=== PATIENT | male | born 1960 | race Caucasian/White ===

== ENCOUNTER 2022-05-06 08:50 | Inpatient (IN) | payer OTHER ==
[2022-05-06] MEDS ORDERED: Fentanyl 100 MCG/2 ML VIAL ONE ×2 (08:54→09:08)
[2022-05-06] MEDS ORDERED: Tranexamic Acid 1,000 MG/10 ML VIAL ONE (08:57)
[2022-05-06] MEDS ORDERED: CEFAZOLIN 1 GM VIAL ONE ×2 (08:59→09:00)
[2022-05-06] MEDS ORDERED: Boostrix 0.5 ML (Tdap) VIAL ONE (09:01)
[2022-05-06] MEDS ORDERED: Calcium Chloride 1 GM/10 ML Abboject SYRINGE ONE (09:02)
[2022-05-06] MEDS ORDERED: Lidocaine 1% PF 5 ML VIAL ONE (09:04)
[2022-05-06] MEDS ORDERED: Calcium Gluc 4.6 MEQ/10 ML (100 MG/ML) ONE (09:05)
[2022-05-06] MEDS ORDERED: Iopamidol-370 76% 500 ML 1 ML ONE (09:08)
[2022-05-06 09:10] LABS: Hemoglobin 14.3 g/dL (14.0-18.0); Mean Corpuscular HGB CONC 32.2 g/dL (32.0-36.0); Mean Corpuscular Hemoglobin 29.3 pg (27.0-31.0); Mean Corpuscular Volume 91.3 fL (78.0-98.0); Mean Platelet Volume 8.6 fL (7.4-10.4); Platelet Count 216 thou/uL (130-400); Red Blood Cell (RBC) Count 4.87 mill/uL (4.70-6.10); White Blood Cell (WBC) Count 28.8 thou/uL (4.8-10.8)
[2022-05-06 09:17] LABS: Actual Bicarbonate (HCO3a) 15.5 mEq/L (22-28); Analyzer IN Cardio ER; Base Excess (BEa) -10.9 mEq/L (-2.0 to +3.0); CO2 Tension 36.4 mmHg (35.0-45.0); Calcium, Ionized (arterial) 0.97 mmol/L (1.12-1.30); Carboxyhemoglobin (COHb) 0.4 gm% (0.0-3.0); Hemoglobin (Hb) 14.8 g/dL (14.0-18.0); O2 Tension (PaO2), arterial 137.4 mmHg (> 80.0); Potassium - ABG Lab 4.45 mmol/L (3.70-5.30); Puncture Site RRA; pH, Arterial 7.25 (7.35-7.45)
[2022-05-06 09:21] LABS: ALT (SGPT) 26 U/L (8-55); AST (SGOT) 25 U/L (5-34); Acetaminophen Less than 10.0 mcg/mL (10.0-30.0); Albumin 3.8 g/dL (3.5-5.0); Alcohol Less than 10 mg/dL (Less than 10); Alkaline Phosphatase 58 U/L (40-110); Anion Gap 20 mmol/L (10-20); BUN (Urea Nitrogen) 12 mg/dL (8.4-25.7); Bilirubin, Total 1.1 mg/dL (0.2-1.2); Calc. Creatinine Clearance 0 mL/min (70-130); Calcium 9.6 mg/dL (7.8-10.44); Carbon Dioxide 15 mmol/L (22-29); Chloride 98 mmol/L (98-107); Estimated GFR 46; Globulin 2.5 g/dL (2.4-3.5); Glucose 246 mg/dL (70-105); Potassium 3.6 mmol/L (3.5-5.1); Protein, Total 6.3 g/dL (6.0-8.3); Salicylate Less than 8.0 mg/dL (15.0-30.0); Sodium 129 mmol/L (136-145)
[2022-05-06 09:22] LABS: INR-International Normal Ratio 1.2; PTT 25.9 sec (22.9-36.1); Prothrombin Time 15.1 sec (12.0-14.7)
[2022-05-06 09:36] LABS: Bacteria/HPF None Seen HPF (None Seen); Bilirubin Negative (Negative); Blood, Urine 2+ (Negative); Clarity Clear (Clear); Glucose, Urine (Dipstick) Normal (Negative); Ketone, Urine Negative (Negative); Leukocyte Negative Leu/uL (Negative); Nitrite Negative (Negative); Protein, Urine (Dipstick) Negative (Neg-Trace); RBC/HPF 21-50 HPF (0-3); Specific Gravity, Urine 1.015 (1.002-1.036); Squamous Epithelial None Seen HPF (0-3); Urobilinogen Normal mg/dL (Less than 2); WBC/HPF 0-3 HPF (0-3)
[2022-05-06 09:41] LABS: Band 41 % (5-11); Lymphocytes 3 % (21-51); MDiff Complete? YES; Monocytes 4 % (0-10); Neutrophil 52 % (42-75); Platelet Morphology Comment Appears Adequate; Polychromasia SLIGHT = 2-3 cells (100X) (0-2/hpf); Reflex for Review?? NO
[2022-05-06 09:46] LABS: Amphetamine Not Detected (NotDetected); Barbiturates Screen Not Detected (NotDetected); Benzodiazepine Screen Not Detected (NotDetected); Cocaine Metabolite Screen Not Detected (NotDetected); Methadone Not Detected (NotDetected); Methamphetamine Not Detected (NotDetected); Opiate Screen Not Detected (NotDetected); Oxycodone Screen Not Detected (NotDetected); Phencyclidine (PCP) Not Detected (NotDetected); THC/Cannabinoid Screen Not Detected (NotDetected); Tricyclic Screen Not Detected (NotDetected)
[2022-05-06] MEDS ORDERED: HumaLOG 300 UNITS/3 ML VIAL SC PRN (09:47)
[2022-05-06] MEDS ORDERED: Dextrose 50% Abboject 50 ML SYRINGE SLOW IVP PRN (09:47)
[2022-05-06] MEDS ORDERED: Dextrose 5% in Water 1,000 ML IV PRN (09:47)
[2022-05-06] MEDS ORDERED: Ondansetron PF 4 MG/2 ML Vial IVP PRN (09:47)
[2022-05-06] MEDS ORDERED: traMADol HCl 50 MG TAB PO PRN ×2 (09:51→15:35)
[2022-05-06] MEDS ORDERED: Lactated Ringer's 1,000 ML IV SCH (10:00)
[2022-05-06 10:57] LABS: SARS-CoV-2 NAA Rapid Test Not Detected (NotDetected)
[2022-05-06 12:53] VITALS: BMI 34.0
[2022-05-06 13:05] LABS: Lactic Acid 3.9 mmol/L (0.5-2.2)
[2022-05-06] MEDS: traMADol HCl 50 MG TAB PO SCH ×3 (13:43→20:24)
[2022-05-06] MEDS: Acetaminophen 325 MG TAB PO SCH ×3 (13:43→20:23)
[2022-05-06] MEDS ORDERED: Prevnar 13-Val Conj/PF 0.5 ML SYRINGE IM ONE (14:00)
[2022-05-06] MEDS ORDERED: Morphine 2 MG/ML VIAL SLOW IVP PRN (15:36)
[2022-05-06] MEDS ORDERED: traMADol HCl 50 MG TAB PO SCH (15:45)
[2022-05-06] MEDS: Gabapentin 300 MG CAP PO SCH (20:23)
[2022-05-06] MEDS ORDERED: Famotidine 20 MG TAB PO SCH (21:00)
[2022-05-06] MEDS ORDERED: Acetaminophen 325 MG TAB PO SCH (21:29)
[2022-05-07] MEDS: Acetaminophen 500 MG TAB PO SCH ×5 (00:10→23:39)
[2022-05-07] MEDS: traMADol HCl 50 MG TAB PO SCH ×5 (00:10→23:39)
[2022-05-07 03:39] LABS: #Basophils 0.1 thou/uL (0.0-0.2); #Lymphocytes 1.6 thou/uL (1.20-3.40); #Monocytes 0.7 thou/uL (0.11-0.59); #Neutrophils 7.8 thou/uL (1.40-6.50); %Basophils 0.6 % (0.0-1.0); %Eosinophils 0.1 % (0.0-10.0); %Lymphocytes 15.6 % (21.0-51.0); %Neutrophils 76.8 % (42.0-75.0); Mean Corpuscular Hemoglobin 31.8 pg (27.0-31.0); Mean Corpuscular Volume 90.8 fL (78.0-98.0); Mean Platelet Volume 8.2 fL (7.4-10.4); Platelet Count 118 thou/uL (130-400); RBC Distribution Width 13.8 % (11.5-14.5); Red Blood Cell (RBC) Count 3.77 mill/uL (4.70-6.10); White Blood Cell (WBC) Count 10.2 thou/uL (4.8-10.8)
[2022-05-07 03:55] LABS: Anion Gap 13 mmol/L (10-20); BUN (Urea Nitrogen) 14 mg/dL (8.4-25.7); Calc. Creatinine Clearance 151 mL/min (70-130); Calcium 8.7 mg/dL (7.8-10.44); Carbon Dioxide 23 mmol/L (22-29); Chloride 97 mmol/L (98-107); Estimated GFR 102; Glucose 110 mg/dL (70-105); Magnesium 1.9 mg/dL (1.6-2.6); Phosphorus 3.6 mg/dL (2.3-4.7); Potassium 3.8 mmol/L (3.5-5.1); Sodium 129 mmol/L (136-145)
[2022-05-07] MEDS: Gabapentin 300 MG CAP PO SCH ×3 (08:23→19:56)
[2022-05-07] MEDS ORDERED: Lurasidone 20 MG TABLET PO SCH (09:00)
[2022-05-07] MEDS ORDERED: Potassium Phosphate 15 MMOL in Sodium Chloride 0.9% 250 ML 250 ML IVPB SCH (09:00)
[2022-05-07 09:58] LABS: #Lymphocytes 0.7 thou/uL (1.20-3.40); #Monocytes 0.3 thou/uL (0.11-0.59); #Neutrophils 8.5 thou/uL (1.40-6.50); %Basophils 0.5 % (0.0-1.0); %Eosinophils 0.2 % (0.0-10.0); %Lymphocytes 6.8 % (21.0-51.0); %Monocytes 3.3 % (0.0-10.0); %Neutrophils 89.2 % (42.0-75.0); Hemoglobin 12.3 g/dL (14.0-18.0); Mean Corpuscular Hemoglobin 30.1 pg (27.0-31.0); Mean Corpuscular Volume 91.3 fL (78.0-98.0); Mean Platelet Volume 8.3 fL (7.4-10.4); Platelet Count 125 thou/uL (130-400); RBC Distribution Width 13.8 % (11.5-14.5); Red Blood Cell (RBC) Count 4.08 mill/uL (4.70-6.10); White Blood Cell (WBC) Count 9.6 thou/uL (4.8-10.8)
[2022-05-07 15:47] LABS: #Basophils 0.1 thou/uL (0.0-0.2); #Eosinphils 0.1 thou/uL (0.0-0.7); #Monocytes 0.6 thou/uL (0.11-0.59); #Neutrophils 9.5 thou/uL (1.40-6.50); %Basophils 0.5 % (0.0-1.0); %Eosinophils 0.5 % (0.0-10.0); %Lymphocytes 8.6 % (21.0-51.0); %Monocytes 5.2 % (0.0-10.0); %Neutrophils 85.2 % (42.0-75.0); Hemoglobin 12.9 g/dL (14.0-18.0); Mean Corpuscular HGB CONC 33.2 g/dL (32.0-36.0); Mean Corpuscular Hemoglobin 30.5 pg (27.0-31.0); Mean Corpuscular Volume 91.9 fL (78.0-98.0); Mean Platelet Volume 8.5 fL (7.4-10.4); Platelet Count 126 thou/uL (130-400); RBC Distribution Width 13.6 % (11.5-14.5); Red Blood Cell (RBC) Count 4.22 mill/uL (4.70-6.10); White Blood Cell (WBC) Count 11.1 thou/uL (4.8-10.8)
[2022-05-07] MEDS: traZODone HCl 50 MG TAB PO SCH (19:57)
[2022-05-07] MEDS: Senokot S 8.6-50 MG TAB PO SCH (19:57)
[2022-05-07] MEDS: Lurasidone 20 MG TABLET PO SCH (21:52)
[2022-05-08 05:11] LABS: #Basophils 0.1 thou/uL (0.0-0.2); #Lymphocytes 0.5 thou/uL (1.20-3.40); #Monocytes 0.4 thou/uL (0.11-0.59); %Basophils 0.5 % (0.0-1.0); %Eosinophils 0.5 % (0.0-10.0); %Lymphocytes 4.6 % (21.0-51.0); %Monocytes 4.1 % (0.0-10.0); %Neutrophils 90.3 % (42.0-75.0); Hemoglobin 11.9 g/dL (14.0-18.0); Mean Corpuscular HGB CONC 33.4 g/dL (32.0-36.0); Mean Corpuscular Hemoglobin 30.4 pg (27.0-31.0); Mean Corpuscular Volume 91.1 fL (78.0-98.0); Mean Platelet Volume 8.4 fL (7.4-10.4); Platelet Count 122 thou/uL (130-400); RBC Distribution Width 13.9 % (11.5-14.5); Red Blood Cell (RBC) Count 3.91 mill/uL (4.70-6.10)
[2022-05-08] MEDS: Acetaminophen 500 MG TAB PO SCH ×4 (05:27→23:39)
[2022-05-08] MEDS: traMADol HCl 50 MG TAB PO SCH ×4 (05:27→23:39)
[2022-05-08 05:37] LABS: Anion Gap 11 mmol/L (10-20); BUN (Urea Nitrogen) 12 mg/dL (8.4-25.7); Calc. Creatinine Clearance 158 mL/min (70-130); Calcium 8.9 mg/dL (7.8-10.44); Carbon Dioxide 24 mmol/L (22-29); Chloride 95 mmol/L (98-107); Estimated GFR 103; Glucose 121 mg/dL (70-105); Magnesium 1.8 mg/dL (1.6-2.6); Phosphorus 2.8 mg/dL (2.3-4.7); Potassium 4.1 mmol/L (3.5-5.1); Sodium 126 mmol/L (136-145)
[2022-05-08] MEDS: Senokot S 8.6-50 MG TAB PO SCH ×2 (08:28→20:22)
[2022-05-08] MEDS: Gabapentin 300 MG CAP PO SCH ×3 (08:28→20:19)
[2022-05-08] MEDS: Polyethylene Glycol 3350 17 GM Packet PO SCH (08:29)
[2022-05-08] MEDS: Enoxaparin Sodium 40 MG/0.4 ML SYRINGE SC SCH (08:57)
[2022-05-08] MEDS ORDERED: Magnesium 2 GM/50 ML(in water) 2 GM in Premix Bag 1 BAG IVPB SCH (09:00)
[2022-05-08] MEDS ORDERED: Sodium Phosphate 30 MMOL in Sodium Chloride 0.9% 250 ML 250 ML IVPB SCH (09:00)
[2022-05-08] MEDS: Ketorolac Tromethamine 30 MG/ML VIAL IVP SCH ×3 (12:24→23:36)
[2022-05-08] MEDS ORDERED: Cyclobenzaprine 10 MG TAB PO PRN (13:33)
[2022-05-08] MEDS: traZODone HCl 50 MG TAB PO SCH (20:22)
[2022-05-08] MEDS: Lurasidone 20 MG TABLET PO SCH (20:22)
[2022-05-09 05:24] LABS: #Basophils 0.1 thou/uL (0.0-0.2); #Eosinphils 0.3 thou/uL (0.0-0.7); #Lymphocytes 0.5 thou/uL (1.20-3.40); #Monocytes 0.5 thou/uL (0.11-0.59); #Neutrophils 8.3 thou/uL (1.40-6.50); %Basophils 1.1 % (0.0-1.0); %Eosinophils 2.6 % (0.0-10.0); %Lymphocytes 4.9 % (21.0-51.0); %Monocytes 5.6 % (0.0-10.0); %Neutrophils 85.8 % (42.0-75.0); Hemoglobin 11.4 g/dL (14.0-18.0); Mean Corpuscular HGB CONC 34.3 g/dL (32.0-36.0); Mean Corpuscular Hemoglobin 31.7 pg (27.0-31.0); Mean Corpuscular Volume 92.5 fL (78.0-98.0); Platelet Count 124 thou/uL (130-400); RBC Distribution Width 13.8 % (11.5-14.5); White Blood Cell (WBC) Count 9.6 thou/uL (4.8-10.8)
[2022-05-09] MEDS: Acetaminophen 500 MG TAB PO SCH ×4 (05:33→23:26)
[2022-05-09] MEDS: Ketorolac Tromethamine 30 MG/ML VIAL IVP SCH ×4 (05:35→23:27)
[2022-05-09] MEDS: traMADol HCl 50 MG TAB PO SCH ×4 (05:35→23:25)
[2022-05-09 05:48] LABS: Anion Gap 11 mmol/L (10-20); BUN (Urea Nitrogen) 14 mg/dL (8.4-25.7); Calc. Creatinine Clearance 170 mL/min (70-130); Calcium 8.6 mg/dL (7.8-10.44); Carbon Dioxide 26 mmol/L (22-29); Chloride 92 mmol/L (98-107); Estimated GFR 103; Glucose 120 mg/dL (70-105); Phosphorus 3.1 mg/dL (2.3-4.7); Potassium 3.8 mmol/L (3.5-5.1); Sodium 125 mmol/L (136-145)
[2022-05-09] MEDS ORDERED: Non-Formulary Item 1 EACH (Fluticasone Propionate [Flonase Allergy Relief] 9.9 ML Bottle) EA NARE PRN (08:27)
[2022-05-09] MEDS ORDERED: Loratadine 10 MG TAB PO PRN (08:27)
[2022-05-09] MEDS ORDERED: PHOS-NAK 1 PKT PACK PO SCH (08:30)
[2022-05-09] MEDS ORDERED: Fluticasone Propionate Nasal Spray 16 gm Bottle NASAL PRN (08:36)
[2022-05-09] MEDS: Senokot S 8.6-50 MG TAB PO SCH ×2 (08:52→20:24)
[2022-05-09] MEDS: Polyethylene Glycol 3350 17 GM Packet PO SCH (08:52)
[2022-05-09] MEDS: Gabapentin 300 MG CAP PO SCH ×2 (08:57→13:15)
[2022-05-09] MEDS: Enoxaparin Sodium 40 MG/0.4 ML SYRINGE SC SCH (08:57)
[2022-05-09] MEDS ORDERED: Furosemide 20 MG/2 ML VIAL SLOW IVP SCH (12:30)
[2022-05-09] MEDS: traZODone HCl 50 MG TAB PO SCH (20:23)
[2022-05-09] MEDS: Lurasidone 20 MG TABLET PO SCH (20:25)
[2022-05-09] MEDS: Gabapentin 100 MG CAP PO SCH (20:26)
[2022-05-10] MEDS: Ketorolac Tromethamine 30 MG/ML VIAL IVP SCH (05:56)
[2022-05-10] MEDS: Acetaminophen 500 MG TAB PO SCH ×4 (05:57→23:41)
[2022-05-10] MEDS: traMADol HCl 50 MG TAB PO SCH ×4 (05:58→23:41)
[2022-05-10 06:53] LABS: #Eosinphils 0.4 thou/uL (0.0-0.7); #Lymphocytes 0.7 thou/uL (1.20-3.40); #Monocytes 0.4 thou/uL (0.11-0.59); #Neutrophils 5.5 thou/uL (1.40-6.50); %Basophils 0.3 % (0.0-1.0); %Eosinophils 5.1 % (0.0-10.0); %Lymphocytes 10.3 % (21.0-51.0); %Monocytes 6.1 % (0.0-10.0); %Neutrophils 78.2 % (42.0-75.0); Hemoglobin 10.4 g/dL (14.0-18.0); Mean Corpuscular HGB CONC 32.7 g/dL (32.0-36.0); Mean Corpuscular Hemoglobin 30.4 pg (27.0-31.0); Mean Corpuscular Volume 92.9 fL (78.0-98.0); Mean Platelet Volume 7.9 fL (7.4-10.4); Platelet Count 169 thou/uL (130-400); Red Blood Cell (RBC) Count 3.43 mill/uL (4.70-6.10)
[2022-05-10 07:09] LABS: Anion Gap 14 mmol/L (10-20); BUN (Urea Nitrogen) 14 mg/dL (8.4-25.7); Calc. Creatinine Clearance 178 mL/min (70-130); Calcium 8.5 mg/dL (7.8-10.44); Carbon Dioxide 27 mmol/L (22-29); Chloride 89 mmol/L (98-107); Estimated GFR 105; Glucose 113 mg/dL (70-105); Magnesium 2.1 mg/dL (1.6-2.6); Phosphorus 2.7 mg/dL (2.3-4.7); Potassium 3.5 mmol/L (3.5-5.1); Sodium 126 mmol/L (136-145)
[2022-05-10] MEDS: Enoxaparin Sodium 40 MG/0.4 ML SYRINGE SC SCH (08:56)
[2022-05-10] MEDS: Gabapentin 100 MG CAP PO SCH ×3 (08:56→20:35)
[2022-05-10] MEDS: Polyethylene Glycol 3350 17 GM Packet PO SCH (09:01)
[2022-05-10] MEDS: Senokot S 8.6-50 MG TAB PO SCH ×2 (09:01→20:36)
[2022-05-10] MEDS ORDERED: PHOS-NAK 1 PKT PACK PO SCH (09:30)
[2022-05-10] MEDS ORDERED: Furosemide 20 MG/2 ML VIAL SLOW IVP SCH (09:30)
[2022-05-10] MEDS ORDERED: Potassium Chloride 20 MEQ TAB PO SCH (09:30)
[2022-05-10] MEDS: Ibuprofen 200 MG TAB PO SCH ×2 (15:56→20:34)
[2022-05-10] MEDS: traZODone HCl 50 MG TAB PO SCH (20:34)
[2022-05-10] MEDS: Lurasidone 20 MG TABLET PO SCH (20:35)
[2022-05-11] MEDS: Ibuprofen 200 MG TAB PO SCH ×3 (05:51→21:48)
[2022-05-11] MEDS: traMADol HCl 50 MG TAB PO SCH ×4 (05:52→23:58)
[2022-05-11] MEDS: Acetaminophen 500 MG TAB PO SCH ×4 (05:52→23:58)
[2022-05-11] MEDS: Gabapentin 100 MG CAP PO SCH ×3 (08:03→21:50)
[2022-05-11] MEDS: Enoxaparin Sodium 40 MG/0.4 ML SYRINGE SC SCH (08:04)
[2022-05-11] MEDS ORDERED: Ciprofloxacin 500 MG TAB PO SCH (09:00)
[2022-05-11] MEDS: Polyethylene Glycol 3350 17 GM Packet PO SCH (09:14)
[2022-05-11] MEDS: Sodium Chloride 1 GM TAB PO SCH ×2 (09:26→21:49)
[2022-05-11] MEDS: Senokot S 8.6-50 MG TAB PO SCH ×2 (10:59→21:49)
[2022-05-11] MEDS: traZODone HCl 50 MG TAB PO SCH (21:49)
[2022-05-11] MEDS: Ciprofloxacin 500 MG TAB PO SCH (21:49)
[2022-05-11] MEDS: Lurasidone 20 MG TABLET PO SCH (21:49)
[2022-05-12] MEDS: Acetaminophen 500 MG TAB PO SCH ×3 (05:34→17:21)
[2022-05-12] MEDS: Ciprofloxacin 500 MG TAB PO SCH ×2 (05:35→21:53)
[2022-05-12] MEDS: Ibuprofen 200 MG TAB PO SCH ×3 (05:35→21:48)
[2022-05-12] MEDS: traMADol HCl 50 MG TAB PO SCH ×3 (05:35→17:22)
[2022-05-12 05:54] LABS: #Basophils 0.1 thou/uL (0.0-0.2); #Eosinphils 0.5 thou/uL (0.0-0.7); #Monocytes 0.3 thou/uL (0.11-0.59); %Basophils 1.3 % (0.0-1.0); %Eosinophils 10.3 % (0.0-10.0); %Lymphocytes 21.3 % (21.0-51.0); %Monocytes 5.9 % (0.0-10.0); %Neutrophils 61.2 % (42.0-75.0); Hemoglobin 9.6 g/dL (14.0-18.0); Mean Corpuscular HGB CONC 33.3 g/dL (32.0-36.0); Mean Corpuscular Hemoglobin 30.9 pg (27.0-31.0); Mean Corpuscular Volume 92.9 fL (78.0-98.0); Mean Platelet Volume 7.2 fL (7.4-10.4); Platelet Count 234 thou/uL (130-400); RBC Distribution Width 13.7 % (11.5-14.5); White Blood Cell (WBC) Count 4.9 thou/uL (4.8-10.8)
[2022-05-12 06:15] LABS: Anion Gap 12 mmol/L (10-20); BUN (Urea Nitrogen) 11 mg/dL (8.4-25.7); Calc. Creatinine Clearance 178 mL/min (70-130); Calcium 8.7 mg/dL (7.8-10.44); Carbon Dioxide 28 mmol/L (22-29); Chloride 96 mmol/L (98-107); Estimated GFR 105; Glucose 105 mg/dL (70-105); Magnesium 2.1 mg/dL (1.6-2.6); Phosphorus 3.5 mg/dL (2.3-4.7); Potassium 3.8 mmol/L (3.5-5.1); Sodium 132 mmol/L (136-145)
[2022-05-12] MEDS: Gabapentin 100 MG CAP PO SCH ×3 (08:18→21:48)
[2022-05-12] MEDS: Sodium Chloride 1 GM TAB PO SCH ×2 (08:18→21:47)
[2022-05-12] MEDS: Enoxaparin Sodium 40 MG/0.4 ML SYRINGE SC SCH (08:18)
[2022-05-12] MEDS: Senokot S 8.6-50 MG TAB PO SCH ×2 (08:19→21:45)
[2022-05-12] MEDS: Polyethylene Glycol 3350 17 GM Packet PO SCH (08:19)
[2022-05-12] MEDS ORDERED: TETANUS, DIPHTHERIA TOX,ADULT (TDVAX) 0.5 ML VIAL IM ONE (11:03)
[2022-05-12 21:10] VITALS: BP 151/73; TEMP 98.1
[2022-05-12] MEDS: Lurasidone 20 MG TABLET PO SCH (21:45)
[2022-05-12] MEDS: traZODone HCl 50 MG TAB PO SCH (21:47)
== END 2022-05-12 22:15 | DRG 604 ==
LOC: EDBD 08:50 → ERS 08:50 → EEVIPCON 08:50 → ERHOLD 09:47 → CCU 12:33 → SURG B 05-07 16:12
PROVIDERS: ADMIT Surgery; ATTEND Surgery
PROC: 0W9B30Z Drainage of Left Pleural Cavity with Drainage Device, Percutaneous Approach (ICD-10-PCS; principal; 2022-05-06)
PROC: 30233N1 Transfusion of Nonautologous Red Blood Cells into Peripheral Vein, Percutaneous Approach (ICD-10-PCS; 2022-05-06)
PROC: 30233K1 Transfusion of Nonautologous Frozen Plasma into Peripheral Vein, Percutaneous Approach (ICD-10-PCS; 2022-05-06)
PROC: 5A09357 Assistance with Respiratory Ventilation, Less than 24 Consecutive Hours, Continuous Positive Airway Pressure (ICD-10-PCS; 2022-05-09)
DX: S21.132A Puncture wound without foreign body of left front wall of thorax without penetration into thoracic cavity, initial encounter (principal); J15.6 Pneumonia due to other Gram-negative bacteria; S22.42XA Multiple fractures of ribs, left side, initial encounter for closed fracture; E87.2 Acidosis; D62 Acute posthemorrhagic anemia; E87.1 Hypo-osmolality and hyponatremia; J98.11 Atelectasis; F32.A Depression, unspecified; S27.1XXA Traumatic hemothorax, initial encounter; E87.6 Hypokalemia; E83.42 Hypomagnesemia; T50.2X5A Adverse effect of carbonic-anhydrase inhibitors, benzothiadiazides and other diuretics, initial encounter; Z20.822 Contact with and (suspected) exposure to COVID-19; Z88.5 Allergy status to narcotic agent; W34.00XA Accidental discharge from unspecified firearms or gun, initial encounter; Y92.9 Unspecified place or not applicable
CPT/HCPCS: 32551; 36415; 36416; 36430; 36600; 71045; 71250; 71260; 74177; 80048; 80306; 80307; 81003; 81015; 82805; 83605; 83735; 83880; 84100; 85025; 86850; 86900; 86901; 87070; 87077; 87186; 87205; 90471; 90670; 90715; 93005; 94640; 94660; 94760; 96374; 96375; G0009; G0390; J0610; J0690; J1650; J1885; J1940; J3010; J3475; J7050; J7120; J7620; P9016; P9048; Q9967; U0002; U0003; U0005